=== PATIENT | male | born 1940 | race Caucasian/White ===

== ENCOUNTER 2017-04-11 15:17 | Inpatient (IN) | payer MEDICARE, OTHER ==
[~2017-04-11] VITALS: Ht 185.4 cm; Wt 91.2 kg
[~2017-04-11 15:17] MED LIST: ATENOLOL 25MG T25 M1 PO; AVODART0.5 MG PO; BENICAR40 MG PO; CIPROFLOXACIN500 M1 PO; FELODIPINE 5 MG5 M1 PO; FLOMAX0.4 MG PO; FLONASE 0.05%50 MCG NS; HYTRIN 2MG CAPSU2 M1 PO; LEVAQUIN 500 M500 M2 PO; ONE DAILY COMP1 EAC1 PO; ROBAFEN AC SYR120 ML PO; SYNTHROID50 MCG PO; ZPAK PO
[2017-04-11 15:25] VITALS: BP 109/86
[2017-04-11] MEDS ORDERED: LOPRESSOR50 PO (15:27)
[2017-04-11] MEDS ORDERED: VITAMIN D3400 UNIT PO (15:28)
[2017-04-11] MEDS ORDERED: VITAMIN D2000 UNIT PO (15:29)
[2017-04-11] MEDS ORDERED: VITAMIN B122500 MCG PO (15:29)
[2017-04-11 16:05] LABS: HEMATOCRIT 40.8 % (42.0-52.0); HEMOGLOBIN 13.8 gm/dL (14.0-18.0); MCHC 33.8 g/dL (28.0-37.0); MCV 94.7 fL (80.0-100.0); MPV 8.9 fl. (7.2-11.1); NUCLEATED RBCS 0 /100WBC; PLATELET COUNT* 142 thou/uL (150-400); RBC 4.31 mil/uL (4.50-6.00); RDW-CV 12.6 % (10.5-14.5); WBC 19.3 thou/uL (4.0-11.0)
[2017-04-11 16:15] LABS: CALCIUM 8.2 mg/dL (8.5-10.1); CREATININE 1.2 mg/dL (0.6-1.3); POTASSIUM 3.6 mmol/L (3.5-5.1)
[2017-04-11 16:26] LABS: ALBUMIN 3.5 g/dL (3.4-5.0); TOTAL BILIRUBIN 0.9 mg/dL (<0.1-1.0); TOTAL PROTEIN 6.6 g/dL (6.4-8.2)
[2017-04-11 16:29] LABS: ABSOLUTE LYMPHOCYTES 1.5 thou/uL (0.8-5.3); ABSOLUTE MONOCYTES 0.8 thou/uL (0.0-1.2)
[2017-04-11 16:31] LABS: PLATELET ESTIMATE ADEQUATE
[2017-04-11 16:39] LABS: URINE BILIRUBIN NEGATIVE (Negative); URINE BLOOD NEGATIVE (Negative); URINE CLARITY CLEAR; URINE COLOR YELLOW; URINE GLUCOSE-RANDOM NEGATIVE (Negative); URINE KETONES NEGATIVE (Negative); URINE LEUKOCYTES-REFLEX NEGATIVE (Negative); URINE NITRITE-REFLEX NEGATIVE (Negative); URINE PROTEIN NEGATIVE (Negative); URINE SPECIFIC GRAVITY 1.015 (1.005-1.030); URINE UROBILINOGEN 0.2 E.U./dl (0.2-1.0)
[2017-04-11 19:49] VITALS: BP 144/83
[2017-04-11 21:00] VITALS: BP 129/76
[2017-04-12 00:01] VITALS: BP 115/73
[2017-04-12 04:16] LABS: CALCIUM 8.8 mg/dL (8.5-10.1); CREATININE 1.3 mg/dL (0.6-1.3); MAGNESIUM 2.3 mg/dL (1.8-2.4); POTASSIUM 3.8 mmol/L (3.5-5.1)
[2017-04-12 04:27] LABS: ABSOLUTE BASOPHILS 0.1 thou/uL (0.0-0.2); ABSOLUTE LYMPHOCYTES 2.2 thou/uL (0.8-5.3); ABSOLUTE MONOCYTES 1.2 thou/uL (0.0-1.2); ABSOLUTE NEUTROPHILS 18.7 thou/uL (1.6-8.1); BASOPHILS 0.4 %; EOSINOPHILS 0.1 %; LYMPHOCYTES 10.1 %; MCH 31.5 pg (26.0-34.0); MCHC 33.4 g/dL (28.0-37.0); MCV 94.3 fL (80.0-100.0); MONOCYTES 5.2 %; NUCLEATED RBCS 0 /100WBC; PLATELET COUNT* 155 thou/uL (150-400); POLYS 84.2 %; RBC 4.45 mil/uL (4.50-6.00); RDW-CV 12.8 % (10.5-14.5); WBC 22.2 thou/uL (4.0-11.0)
--- NOTE | 2017-04-12 04:33 | NUR ---
PT. ADMITTED TO BED 112 @ 2000, ALERT AND ORIENTED, C/O ABDOMINAL PAIN. VITAL SIGNS STABLE. ROOM AIR. C/O CONSTIPATION, MAG CITRATE ORDERED, GIVEN, PT. VOMITTED, ZOFRAN GIVEN PER PRN ORDER. PT. UP STAND BY ASSIST. WILL CONTINUE TO MONITOR.
[2017-04-12 07:45] VITALS: BP 119/78
--- NOTE | 2017-04-12 08:44 | NUR ---
ASSUMED CARE OF PT AROUND 0730 THIS AM. REFER TO ASSESSMENT. PT REPORTED ABDOMINAL PAIN THIS AM. PRN FENTANYL ADMINISTERED AND PT REPORTS EFFECTIVE. NO BM REPORTED AT THIS TIME. PT REPORTS PASSING FLATUS. TOLERATING CLEAR LIQUID DIET THIS AM. NO OTHER CONCERNS AT THIS TIME. CLWR. WCTM.
--- NOTE | 2017-04-12 12:32 | NUR ---
MET WITH PT TO DISCUSS HOME SITUATION/DC PLANNING. PT LIVES WITH SPOUSE. HE IS NORMALLY INDEPENDENT AND FAIRLY ACTIVE. USES A CANE NEEDED. PT DRIVES. HE HASN'T HAD HH OR BEEN TO SNF. DOESN'T ANTICIPATE ANY NEEDS AT THIS TIME. AND DTR AT BEDSIDE AND SUPPORTIVE. WILL FOLLOW
[2017-04-12 16:00] VITALS: BP 124/69
--- NOTE | 2017-04-12 17:42 | NUR ---
PT PROGRESSING TOWARDS GOALS THIS SHIFT. PT HAS HAD A BM THIS SHIFT. PT HAS REPORTED LESS PAIN THROUGHOUT THIS SHIFT. VSS. NO C/O NAUSEA THIS SHIFT. PT HAS TOLERATED CLEAR AND FULL LIQUID DIET. NO OTHER CONCERNS AT THIS TIME. CLWR. WCTM.
[2017-04-12 20:00] VITALS: BP 134/78
--- NOTE | 2017-04-12 22:00 | NUR ---
ASSESSMENT AND VITALS COMPLETED CHARTED VSS. PATIENT ON ROOM AIR WITH SATS >92%. PATIENT HAS C/O PAIN IN ABDOMEN. ENCOURAGED PAIN TO ATTEMPT TO HAVE A BOWEL MOVEMENT OR REPOSITION FOR COMFORT. PATIENT REQUESTING IV FENTANYL. COMPLETE RELIEF OF PAIN RELIEVED WITH IV FENTANYL. SCHEDULED STOOL SOFTENERS ADMINISTERED. GOAL IS FOR PATIENT TO HAVE A BOWEL MOVEMENT AND RECEIVE PAIN RELIEF. CALL LIGHT WITHIN REACH
[2017-04-13 04:50] LABS: ABSOLUTE BASOPHILS 0.1 thou/uL (0.0-0.2); ABSOLUTE EOSINOPHILS 0.1 thou/uL (0.0-0.7); ABSOLUTE LYMPHOCYTES 1.2 thou/uL (0.8-5.3); ABSOLUTE MONOCYTES 0.9 thou/uL (0.0-1.2); ABSOLUTE NEUTROPHILS 10.5 thou/uL (1.6-8.1); BASOPHILS 0.5 %; EOSINOPHILS 0.5 %; HEMATOCRIT 37.1 % (42.0-52.0); HEMOGLOBIN 12.7 gm/dL (14.0-18.0); LYMPHOCYTES 9.2 %; MCHC 34.3 g/dL (28.0-37.0); MCV 93.3 fL (80.0-100.0); MONOCYTES 7.1 %; MPV 9.7 fl. (7.2-11.1); NUCLEATED RBCS 0 /100WBC; PLATELET COUNT* 129 thou/uL (150-400); POLYS 82.7 %; RBC 3.98 mil/uL (4.50-6.00); RDW-CV 12.5 % (10.5-14.5); WBC 12.7 thou/uL (4.0-11.0)
[2017-04-13 04:56] LABS: ALBUMIN 2.8 g/dL (3.4-5.0); CALCIUM 7.9 mg/dL (8.5-10.1); CREATININE 1.2 mg/dL (0.6-1.3); POTASSIUM 3.9 mmol/L (3.5-5.1); TOTAL PROTEIN 5.8 g/dL (6.4-8.2)
--- NOTE | 2017-04-13 05:14 | NUR ---
PATIENT PARTIALLY PROGRESSING TOWARDS GOALS: PATIENT IS PASSING FLATUS AND HAD A SMALL BOWEL MOVEMENT THIS SHIFT. BM WAS NOT OBSERVED DUE TO PATIENT FLUSHING TOILET. PATIENT RECEIVED IV PAIN MEDICATION ONE TIME WITH COMPLETE RELIEF OF PAIN AND HAS NOT HAS C/O PAIN SINCE. HOURLY ROUNDING OBSERVED. CALL LIGHT WITHIN REACH
[2017-04-13 07:55] VITALS: BP 137/75
--- NOTE | 2017-04-13 10:15 | NUR ---
ASSUMED CARE OF PT AROUND 0700 THIS AM. REFER TO ASSESSMENT. PT VOICES NO CONCERNS THIS AM. DENIES PAIN OR NAUSEA. REPORTS OCCASIONAL GAS RELIEVED BY PASSING FLATUS. IVF INFUSING WITHOUT DIFFICULTY. NO OTHER CONCERNS AT THIS TIME. CLWR. WCTM.
[2017-04-13 16:00] VITALS: BP 144/91
--- NOTE | 2017-04-13 16:35 | NUR ---
PT PROGRESSING TOWARDS GOALS. PT HAS NOT HAD ANY C/O PAIN/ NAUSEA/ VOMITTING THIS SHIFT. IVF INFUSING WITHOUT DIFFICULTY. DHALIWAL DRAINING WITHOUT DIFFICULTY. FAMILY AT BEDSIDE. NO OTHER CONCERNS AT THIS TIME. CLWR. WCTM.
[2017-04-13 20:00] VITALS: BP 132/73
--- NOTE | 2017-04-14 04:07 | NUR ---
PATIENT ORIENTED X4 ON HOURLY ROUNDS. AMBULATED IN HALLWAYS, TOLERATED WELL. DENIES NEED FOR PAIN MEDICATION. TOLERATING DIET. DHALIWAL CATHETER PATENT, CLEAR YELLOW RETURN. VITALS STABLE ON ROOM AIR. CONTINUE TO MONITOR.
[2017-04-14 04:23] LABS: ABSOLUTE BASOPHILS 0.1 thou/uL (0.0-0.2); ABSOLUTE EOSINOPHILS 0.2 thou/uL (0.0-0.7); ABSOLUTE LYMPHOCYTES 1.4 thou/uL (0.8-5.3); ABSOLUTE MONOCYTES 0.9 thou/uL (0.0-1.2); ABSOLUTE NEUTROPHILS 7.2 thou/uL (1.6-8.1); BASOPHILS 1.3 %; EOSINOPHILS 2.3 %; HEMATOCRIT 36.4 % (42.0-52.0); HEMOGLOBIN 12.4 gm/dL (14.0-18.0); LYMPHOCYTES 14.2 %; MCH 32.6 pg (26.0-34.0); MCHC 34.1 g/dL (28.0-37.0); MCV 95.6 fL (80.0-100.0); MONOCYTES 8.9 %; MPV 9.7 fl. (7.2-11.1); NUCLEATED RBCS 0 /100WBC; PLATELET COUNT* 137 thou/uL (150-400); POLYS 73.3 %; RBC 3.81 mil/uL (4.50-6.00); RDW-CV 12.9 % (10.5-14.5); WBC 9.8 thou/uL (4.0-11.0)
[2017-04-14 04:32] LABS: ALBUMIN 2.7 g/dL (3.4-5.0); CREATININE 1.2 mg/dL (0.6-1.3); TOTAL BILIRUBIN 0.7 mg/dL (<0.1-1.0); TOTAL PROTEIN 5.7 g/dL (6.4-8.2)
[2017-04-14 04:37] LABS: PREALBUMIN 14.2 mg/dL (18.0-35.7)
[2017-04-14 09:15] VITALS: BP 149/84
--- NOTE | 2017-04-14 09:32 | NUR ---
ORDERS RECEIVED. CHART REVIEWED. NSG NOTES INDICATE PT AMB IN HALLS LAST NIGHT. ON FIRST ATTEMPT TO SEE PT, HE WAS IN BATHROOM INDEP. SPOKE WITH PT WHO REPORTS NO DIFFICULTY WITH MOBILITY AND NO CONCERNS. PT STATES HE BROUGHT A CANE TO HOSPITAL FOR ADDITIONAL SECURITY WITH MOBILITY. NO ACUTE P.T. INTERVENTION INDICATED AT THIS TIME.
[2017-04-14] MEDS ORDERED: FLAGYL500 MG PO (13:54)
[2017-04-14] MEDS ORDERED: CIPRO500 MG PO (13:54)
[2017-04-14] MEDS ORDERED: MIRALAX17 GM PO (14:02)
[2017-04-14 14:03] VITALS: BP 149/84
[2017-04-14 14:24] VITALS: BP 149/84
[2017-04-14 14:56] VITALS: BP 149/84
[2017-04-14 15:06] VITALS: BP 149/84
--- NOTE | 2017-04-14 15:07 | NUR ---
PATIENT IS ALERT AND ORIENTED VERY PLEASANTM, VITAL SIGNS STABLE ON ROOM AIR. NO COMPLIANTS OF ANY KIND TODAY. DHALIWAL DRAINS WELL. CHECKED WITH DOCTOR AND DHALIWAL IS TO REMAIN IN PLACE AND DR APPT NEEDS TO BE NEXT WEEK. DISCHARGE INSTRUCTIONS, PRESCRIPTIONS GIVEN AND QUESTIONS ANSWERED FOR FAMILY. PATIENT LEFT VIA WHEELCHAIR WITH TO HOME.
--- NOTE | 2017-04-29 19:58 | CON ---
[address] [address] CONSULTATION Name: ANGI MONTANA Room: [address] IN M.R.#: [id number] Admission: 04/11/17 Attend Phys: Eric Spencer MD Discharge: 04/14/17 Date of : 36 Report #: [id number] THIS REPORT FOR: //name// CC: Eric Soto MD ADDENDUM REFERRING PHYSICIAN: Eric Spencer MD. Addendum to job #[id number] I have seen and examined: Agree with plan that has been outlined by our nurse practitioner, Mandy Ro. I also reviewed the patient's CT scan and agree that he has uncomplicated sigmoid diverticulitis. He is currently on antibiotics and a full liquid diet. Once he is feeling better, we can advance him on low-residue diet for the duration of treatment for his diverticulitis which would be over the next 2-3 weeks and switch him over to high fiber diet. We will need to make sure he is passing gas and having bowel movements before he leaves the hospital as it will definitely help with his lower pain. I suspect the patient will need to be in the hospital for another 4-5 days. We will continue to follow him. We then get him set up as an outpatient for a colonoscopy in 4-6 weeks. I have discussed the plans with the patient as well, and he is agreeable to the same. <ELECTRONICALLY SIGNED> By: Rock Mcfarlane DO 04/29/171957 1727 0012Rock Mcfarlane DO /nt
--- NOTE | 2017-04-29 19:58 | CON ---
[address] [address] CONSULTATION Name: ANGI MONTANA Room: [address]#: [id number] Admission: 04/11/17 Attend Phys: Eric Spencer MD Discharge: 04/14/17 Date of : 38 Report #: [id number] THIS REPORT FOR: //name// CC: Eric Soto DICTATED BY: Mandy Ro [facility] DATE OF SERVICE: 04/12/2017 Please note at the time of this dictation, the patient was seen and physically examined by myself. REASON FOR CONSULTATION: Diverticulitis. HISTORY OF PRESENT ILLNESS: This is a 76-year-old male who presented to the Emergency Room after having lower abdominal discomfort, which he states on Tuesday night he had some discomfort and unable to go to the bathroom and again on Tuesday night his pain became worse. He did have a very small bowel movement that was very hard in nature on Tuesday evening and his pain continued to get worse prompting him to come in to be seen yesterday in the Emergency Room. His last bowel movement was Tuesday evening, late, which was very hard and dry. He states normally he goes about once a day in the morning upon awakening and then sometimes he may have some diarrhea following that. He does not take anything regularly for his bowels either. He states he did have a colonoscopy a couple of years ago with [facility] and we will obtain those records for our review. He also was having some issues with having to strain to urinate as well as defecate at the time of admission. It was noted that he had an enlarged prostate and Urology was consulted at that time. ALLERGIES: MORPHINE. MEDICATIONS: From home include Hytrin, vitamin B12, vitamin D, Lopressor, Synthroid and Plendil. PAST MEDICAL HISTORY: Hypertension, hypothyroidism, benign prostatic hypertrophy and questionable history of some prostate cancer. PAST SURGICAL HISTORY: Appendectomy. FAMILY HISTORY: Noncontributory. SOCIAL HISTORY: Denies any alcohol, tobacco or illegal drug use. REVIEW OF SYSTEMS: Twelve-point review of systems [place] [address] CONSULTATION Name: ANGI MONTANA Room: [address]#: [id number] Admission: 04/11/17 Attend Phys: Eric Spencer MD Discharge: 04/14/17 Date of : 38 Report #: [id number] except what is mentioned in the HPI. PHYSICAL EXAMINATION: VITAL SIGNS: Temperature 36.7, pulse 83, respirations 15 and blood pressure 119/78. HEART: Regular rate and rhythm. LUNGS: Clear. ABDOMEN: Soft, positive bowel sounds in all four quadrants with tenderness noted in the lower quadrants especially on the right lower quadrant to touch. LABORATORY DATA: Hemoglobin is 11.4, hematocrit is 42, white count on admission was 19 and he is up to 22 and platelets 155. Sodium 136, potassium 3.8, chloride 103, CO2 of 23, BUN is 16, creatinine 1.3, GFR is 53 and glucose is 157. His CRP is 171. His LFTs are normal and lipase is normal. CT of the abdomen and pelvis showed prominent inflammatory changes with wall thickening of the sigmoid area extending along the sigmoid colon consistent with acute diverticulitis with pericolonic inflammation and fluid that did not show any abscess that was noted as well as an enlarged prostate as well. He also noted to have hepatic steatosis and some cystic changes noted in the kidneys. IMPRESSION: 1. Abdominal pain and diverticulitis. 2. Constipation. 3. Leukocytosis. 4. Enlarged prostate. PLAN: 1. The patient to have a better bowel regimen when he goes home, so that he is going soft and formed on a daily basis. 2. Continue his antibiotics, Cipro and Flagyl. 3. Obtain his medical records from [facility] for our review. 4. Further recommendations to be made once the above have been noted. Thank you for allowing us to participate in this patient's care. Please do not hesitate to call with any questions in regard to this consult. <ELECTRONICALLY SIGNED> By: Rock Mcfarlane DO 04/29/17 1958 1512 0558Rock Mcfarlane DO /nt
== END 2017-04-14 17:14 | disposition home or self-care (01) | DRG 872 ==
LOC: M.ERS 15:17 → M.ORTHSURG 17:09 → M.TBA-ER 17:09 → M.ORTHSURG 20:05
PROVIDERS: Physician Assistant; ADMIT Internal Medicine
DX: A41.9 Sepsis, unspecified organism (principal); K57.20 Diverticulitis of large intestine with perforation and abscess without bleeding; E44.1 Mild protein-calorie malnutrition; E86.0 Dehydration; I10 Essential (primary) hypertension; E03.9 Hypothyroidism, unspecified; N40.0 Benign prostatic hyperplasia without lower urinary tract symptoms; K59.00 Constipation, unspecified; R33.9 Retention of urine, unspecified; N40.1 Benign prostatic hyperplasia with lower urinary tract symptoms; Z90.49 Acquired absence of other specified parts of digestive tract; Z79.899 Other long term (current) drug therapy; Z88.6 Allergy status to analgesic agent

== ENCOUNTER 2017-05-01 01:37 | Emergency (ER) | payer MEDICARE, OTHER ==
[~2017-05-01] VITALS: Ht 185.4 cm; Wt 86.2 kg
[~2017-05-01 01:37] MED LIST changes: +CIPRO500 MG PO; +FLAGYL500 MG PO; +LOPRESSOR50 PO; +MIRALAX17 GM PO; +VITAMIN B122500 MCG PO; +VITAMIN D2000 UNIT PO; +VITAMIN D3400 UNIT PO
[2017-05-01 02:02] LABS: ABSOLUTE BASOPHILS 0.2 thou/uL (0.0-0.2); ABSOLUTE LYMPHOCYTES 1.8 thou/uL (0.8-5.3); ABSOLUTE MONOCYTES 1.8 thou/uL (0.0-1.2); ABSOLUTE NEUTROPHILS 12.2 thou/uL (1.6-8.1); EOSINOPHILS 0.2 %; HEMATOCRIT 40.5 % (42.0-52.0); HEMOGLOBIN 13.7 gm/dL (14.0-18.0); LYMPHOCYTES 11.4 %; MCH 31.8 pg (26.0-34.0); MCHC 33.9 g/dL (28.0-37.0); MCV 93.6 fL (80.0-100.0); MONOCYTES 11.1 %; MPV 8.6 fl. (7.2-11.1); NUCLEATED RBCS 0 /100WBC; PLATELET COUNT* 212 thou/uL (150-400); POLYS 76.3 %; RBC 4.32 mil/uL (4.50-6.00); RDW-CV 12.8 % (10.5-14.5)
[2017-05-01 02:05] LABS: URINE BILIRUBIN NEGATIVE (Negative); URINE BLOOD 1+ (Negative); URINE CLARITY SL CLOUDY; URINE COLOR YELLOW; URINE GLUCOSE-RANDOM NEGATIVE (Negative); URINE KETONES NEGATIVE (Negative); URINE PROTEIN NEGATIVE (Negative); URINE UROBILINOGEN 0.2 E.U./dl (0.2-1.0)
[2017-05-01 02:08] LABS: CALCIUM 8.6 mg/dL (8.5-10.1); CREATININE 1.1 mg/dL (0.6-1.3); POTASSIUM 3.8 mmol/L (3.5-5.1)
[2017-05-01 02:10] LABS: URINE LEUKOCYTES-REFLEX 2+ (Negative); URINE NITRITE-REFLEX POSITIVE (Negative)
[2017-05-01 02:12] LABS: ALBUMIN 3.6 g/dL (3.4-5.0); TOTAL BILIRUBIN 1.1 mg/dL (<0.1-1.0); TOTAL PROTEIN 7.3 g/dL (6.4-8.2)
[2017-05-01 02:35] LABS: CASTS None Seen /LPF (None Seen); SQUAMOUS 0-3 Few /LPF (0-3)
[2017-05-01 02:36] LABS: BACTERIA-REFLEX >30 Many /HPF (None Seen); CRYSTALS None Seen /LPF (None Seen); URINE RBC 0-2 Rare /HPF (0-2); WBC CLUMPS Few (None Seen)
[2017-05-01 04:28] VITALS: BP 117/76
== END 2017-05-01 04:32 | disposition home or self-care (01) ==
LOC: M.ERS 01:37
PROVIDERS: Personal Emergency Response Attendant
DX: N39.0 Urinary tract infection, site not specified (principal); I10 Essential (primary) hypertension

== ENCOUNTER → 2017-09-22 | Outpatient (CLI) | payer MEDICARE, OTHER | LOC: M.RAD 14:04 | DX: J40 Bronchitis, not specified as acute or chronic (principal) ==

== ENCOUNTER → 2018-05-01 | Outpatient (CLI) | payer MEDICARE, BC | LOC: M.RAD 11:10 | DX: R50.9 Fever, unspecified (principal) ==

== ENCOUNTER 2018-12-12 19:34 | Inpatient (IN) | payer MEDICARE, OTHER ==
[~2018-12-12] VITALS: Ht 185.4 cm; Wt 93.3 kg
[~2018-12-12 19:34] MED LIST changes: -VITAMIN B122500 MCG PO
[2018-12-12 19:58] VITALS: BP 144/69
[2018-12-12] MEDS ORDERED: PROSCAR 5MG TABL5 MG PO (20:06)
[2018-12-12] MEDS ORDERED: PROMETH-CODEIN 65 ML PO (20:07)
[2018-12-12 20:24] LABS: ABSOLUTE LYMPHOCYTES 0.5 thou/uL (0.8-5.3); BASOPHILS 0.4 %; EOSINOPHILS 0.4 %; HEMATOCRIT 41.9 % (42.0-52.0); HEMOGLOBIN 14.6 gm/dL (14.0-18.0); LYMPHOCYTES 5.2 %; MCH 32.6 pg (26.0-34.0); MCHC 34.9 g/dL (28.0-37.0); MCV 93.3 fL (80.0-100.0); MPV 8.6 fl. (7.2-11.1); NUCLEATED RBCS 0 /100WBC; PLATELET COUNT* 145 thou/uL (150-400); RBC 4.49 mil/uL (4.50-6.00); RDW-CV 12.9 % (10.5-14.5); WBC 9.5 thou/uL (4.0-11.0)
[2018-12-12 20:31] LABS: ANION GAP 11 mmol/L (7-16); BUN 17 mg/dL (7-18); CALCIUM 8.6 mg/dL (8.5-10.1); CHLORIDE 100 mmol/L (98-107); CO2 26 mmol/L (21-32); CREATININE 1.5 mg/dL (0.6-1.3); GLUCOSE 125 mg/dL (70-99); POTASSIUM 3.9 mmol/L (3.5-5.1); SODIUM 137 mmol/L (136-145)
[2018-12-12 20:41] LABS: ALBUMIN 3.9 g/dL (3.4-5.0); ALKALINE PHOSPHATASE 98 U/L (46-116); LIPASE 151 U/L (73-393); NT-PRO BRAIN NAT PEPTIDE 378 pg/mL (<300); SGOT 34 U/L (15-37); SGPT 32 U/L (30-65); TOTAL PROTEIN 7.2 g/dL (6.4-8.2); TROPONIN-I LEVEL <0.06 ng/mL (<0.06)
[2018-12-12 20:48] LABS: PROTIME 10.7 Seconds (9.20-11.50)
[2018-12-12 21:42] LABS: INFLUENZA A ANTIGEN Negative (Negative); INFLUENZA B ANTIGEN Negative (Negative)
[2018-12-12 23:30] VITALS: BP 143/80
[2018-12-12 23:32] VITALS: BP 144/68
[2018-12-12] MEDS ORDERED: VITAMIN B122500 MCG PO (23:47)
[2018-12-13 03:00] VITALS: BP 109/64
[2018-12-13 06:05] LABS: URINE BILIRUBIN NEGATIVE (Negative); URINE BLOOD TRACE (Negative); URINE CLARITY CLEAR; URINE COLOR YELLOW; URINE GLUCOSE-RANDOM 1+ (Negative); URINE KETONES 2+ (Negative); URINE LEUKOCYTES-REFLEX NEGATIVE (Negative); URINE NITRITE-REFLEX NEGATIVE (Negative); URINE PROTEIN NEGATIVE (Negative); URINE UROBILINOGEN 0.2 E.U./dl (0.2-1.0)
[2018-12-13 08:00] VITALS: BP 125/64
--- NOTE | 2018-12-13 10:16 | EKG ---
[place] [address] ELECTROCARDIOGRAM REPORT Name: ANGI MONTANA Room: [address] ADM IN .R.#: [id number] Admission: 12/12/18 Attend Phys: Daniel Alvarado, Discharge: Date of : 38 Report #: [id number] THIS REPORT FOR: //name// [facility] Test Date: 2018-12-12 Test Time: 20:02:20 Pat Name: ANGI NAN Department: Room: [facility] Gender: M Cable Splicing Technician: ZULMA : 1940 Requested By: Monica Trevino Order Number: [id number] MD: Umer Rodriguez Measurements Intervals [place] Rate: 98 P: 60 KS: 148 QRS: -76 QRSD: 131 T: 53 QT: 362 QTc: 463 Interpretive Statements Sinus tachycardia Multiple premature complexes, vent & supraven Probable left atrial enlargement RBBB and LAFB Baseline wander in lead(s) V6 Compared to ECG 07/17/2009 17:53:23 Sinus rhythm no longer present Electronically Signed On 12-13-2018 10:16:16 CDT by Umer Rodriguez [email or web address] <ELECTRONICALLY SIGNED> By: Umer Rodriguez MD, FACC 12/13/18 1016 01 01 Umer Rodriguez MD, FACC /EPI
[2018-12-13 11:00] VITALS: BP 124/64
[2018-12-13 15:00] VITALS: BP 118/69
[2018-12-13 21:05] VITALS: BP 117/52
[2018-12-14 00:35] VITALS: BP 114/65
[2018-12-14 04:30] VITALS: BP 122/84
[2018-12-14 04:46] LABS: MCH 32.2 pg (26.0-34.0); MCHC 34.6 g/dL (28.0-37.0); MPV 9.6 fl. (7.2-11.1); RBC 3.87 mil/uL (4.50-6.00); RDW-CV 13.2 % (10.5-14.5); WBC 15.4 thou/uL (4.0-11.0)
[2018-12-14 04:49] LABS: HEMOGLOBIN 12.5 gm/dL (14.0-18.0)
[2018-12-14 05:04] LABS: ALBUMIN 2.9 g/dL (3.4-5.0); CALCIUM 7.7 mg/dL (8.5-10.1); CREATININE 1.3 mg/dL (0.6-1.3); MAGNESIUM 1.9 mg/dL (1.8-2.4); POTASSIUM 3.6 mmol/L (3.5-5.1); TOTAL BILIRUBIN 0.8 mg/dL (<0.1-1.0); TOTAL PROTEIN 5.7 g/dL (6.4-8.2)
[2018-12-14 08:00] VITALS: BP 120/61
[2018-12-14 12:33] VITALS: BP 118/66
[2018-12-14 16:00] VITALS: BP 127/71
[2018-12-14 19:35] VITALS: BP 130/78
[2018-12-14 21:05] LABS: IgA 165 mg/dL (61-437); IgG 551 mg/dL (700-1600); IgM 168 mg/dL (15-143)
[2018-12-15] VITALS (7 sets, daily range): BP systolic 112–166; BP diastolic 75–99
--- NOTE | 2018-12-15 11:59 | CON ---
[address] [address] CONSULTATION Name: ANGI MONTANA Room: [address] IN .R.#: [id number] Admission: 12/12/18 Attend Phys: Daniel Alvarado, Discharge: Date of : 38 Report #: [id number] THIS REPORT FOR: //name// CC: Anna Alvarado DATE OF SERVICE: 12/14/2018 REASON FOR EVALUATION: Cough, shortness of breath, post-fall. HISTORY OF PRESENT ILLNESS: The patient is an 78-year-old pleasant gentleman who was admitted with cough, sore throat for 3 days. The patient had a fall, was not able to pick him up, and was admitted for further care. He states he has been having cough productive of yellow sputum over the last 3 days. Currently, with antibiotics treatment, his cough is more clear. He had history of chills, poor appetite, also has history of dysphagia that he relates to sore throat. Denies any hemoptysis. Denies any history of wheezing, asthma or COPD in the past, quit smoking 40 years ago. He had a V/Q scan, which was normal and excludes PE and he had a CT scan, which shows right upper lobe ground glass opacity as well as bronchiectasis, more prominent in the right lower lobe. PAST MEDICAL HISTORY: Hypertensin, sinusitis and diverticulosis. ALLERGIES: MORPHINE. FAMILY HISTORY: No family history of COPD or cardiac disease. SOCIAL HISTORY: Quit smoking more than 40 years ago. REVIEW OF SYSTEMS: Twelve-point review of systems, fever and cough. Denies lower extremity swelling or pain. Denies nausea or vomiting. Has history of choking. Otherwise, 14 systems reviewed and as above. HOME MEDICATIONS: Reviewed. PHYSICAL EXAMINATION: GENERAL: The patient is pleasant, not in distress. VITAL SIGNS: Stable. He is afebrile, maximum temperature on admission 38.2, pulse is 67, respiratory rate 17, blood pressure 118/66, O2 saturation is currently off oxygen, was on 1 liter. HEAD AND NECK: Neck supple. Oral mucosae clear. CHEST: Clear to auscultation. CARDIOVASCULAR: Regular rhythm. ABDOMEN: Soft, [place] [id number] CONSULTATION Name: ANGI MONTANA Room: [address]#: [id number] Admission: 12/12/18 Attend Phys: Daniel Alvarado, Discharge: Date of : 38 Report #: [id number] EXTREMITIES: No edema. NEUROLOGIC: No focal deficit. Alert and oriented. PSYCHIATRIC: Alert, oriented, normal affect. SKIN: No changes. EYES: Nonicteric. Mucous membranes are clear. LABORATORY AND OTHER DATABASE: V/Q scan done on 12/13/[address] scan, which I have reviewed as above, right upper lobe ground glass opacity, bronchiectasis is more prominent in the right side and right middle lobe and it is mild. ASSESSMENT AND PLAN: Cough and fever with purulent sputum, suspect pneumonia. Has right upper lobe opacity. Agree with treatment with antibiotics, currently on Zosyn and azithromycin with improvement. Differential diagnoses include aspiration with aspiration pneumonia. At this time, we will do video swallow evaluation. Aspiration precaution recommended. Continue current antibiotic, takes azithromycin, currently on Zosyn too, may deescalate antibiotics in the morning. Bronchiectasis, differential diagnosis includes aspiration. We will do a video swallow. Other differential diagnosis includes hypogammaglobulinemia, decreased. We will check immunoglobulin level. Also with history of cough and prolonged bronchitis in the past, we will check IgE level. In the past, he had history of prolonged bronchitis, may need antibiotic treatment in case of severe bronchitis. Multiple falls, we will defer to primary, doubt syncope. The patient states he had severe cough, but he did not black out. Doubt cough-related syncope. <ELECTRONICALLY SIGNED> By: Nael Plata MD 12/15/18 1159 1410 2118Asem Aditya Plata MD /nt
[2018-12-16 04:00] VITALS: BP 154/85
[2018-12-16 08:00] VITALS: BP 139/73
[2018-12-16 13:09] VITALS: BP 152/82
[2018-12-16 20:00] VITALS: BP 157/81
[2018-12-17] VITALS: BP 141/86
[2018-12-17 04:00] VITALS: BP 151/83
[2018-12-17 08:00] VITALS: BP 128/78
[2018-12-17 14:10] VITALS: BP 146/84
[2018-12-17 16:00] VITALS: BP 132/87
[2018-12-17 20:00] VITALS: BP 166/99
[2018-12-18] VITALS (7 sets, daily range): BP systolic 127–162; BP diastolic 72–93
[2018-12-18 05:30] LABS: HEMATOCRIT 36.2 % (42.0-52.0); HEMOGLOBIN 12.3 gm/dL (14.0-18.0); MCH 31.9 pg (26.0-34.0); MCHC 33.9 g/dL (28.0-37.0); NUCLEATED RBCS 0 /100WBC; PLATELET COUNT* 181 thou/uL (150-400); RBC 3.85 mil/uL (4.50-6.00); RDW-CV 13.1 % (10.5-14.5); WBC 10.4 thou/uL (4.0-11.0)
[2018-12-18 05:45] LABS: ALBUMIN 2.9 g/dL (3.4-5.0); CALCIUM 7.7 mg/dL (8.5-10.1); CREATININE 1.3 mg/dL (0.6-1.3); MAGNESIUM 2.1 mg/dL (1.8-2.4); POTASSIUM 3.4 mmol/L (3.5-5.1); TOTAL BILIRUBIN 0.6 mg/dL (<0.1-1.0); TOTAL PROTEIN 5.9 g/dL (6.4-8.2)
[2018-12-18 06:07] LABS: ABSOLUTE LYMPHOCYTES 1.4 thou/uL (0.8-5.3); ABSOLUTE MONOCYTES 0.7 thou/uL (0.0-1.2); ABSOLUTE NEUTROPHILS 8.3 thou/uL (1.6-8.1); ANISOCYTOSIS 1+; MYELOCYTES 1 %; PLATELET ESTIMATE ADEQUATE; POIKILOCYTOSIS 1+
[2018-12-18 10:10] LABS: IgE 557 IU/mL (6-495)
[2018-12-19 04:00] VITALS: BP 148/89
[2018-12-19 05:10] LABS: ABSOLUTE LYMPHOCYTES 0.8 thou/uL (0.8-5.3); ABSOLUTE MONOCYTES 0.9 thou/uL (0.0-1.2); ABSOLUTE NEUTROPHILS 5.4 thou/uL (1.6-8.1); BASOPHILS 0.4 %; EOSINOPHILS 0.1 %; HEMATOCRIT 34.5 % (42.0-52.0); HEMOGLOBIN 11.8 gm/dL (14.0-18.0); LYMPHOCYTES 10.7 %; MCH 31.9 pg (26.0-34.0); MCHC 34.2 g/dL (28.0-37.0); MCV 93.1 fL (80.0-100.0); MONOCYTES 12.4 %; MPV 8.7 fl. (7.2-11.1); NUCLEATED RBCS 0 /100WBC; PLATELET COUNT* 178 thou/uL (150-400); POLYS 76.4 %; RBC 3.71 mil/uL (4.50-6.00); RDW-CV 13.2 % (10.5-14.5); WBC 7.1 thou/uL (4.0-11.0)
[2018-12-19 05:24] LABS: CALCIUM 7.8 mg/dL (8.5-10.1); POTASSIUM 3.5 mmol/L (3.5-5.1)
[2018-12-19 08:00] VITALS: BP 146/81
[2018-12-19 12:16] VITALS: BP 144/82
--- NOTE | 2018-12-19 15:03 | EKG ---
[place] [address] ELECTROCARDIOGRAM REPORT Name: ANGI MONTANA Room: [address] ADM IN M.R.#: [id number] Admission: 12/12/18 Attend Phys: Daniel Alvarado, Discharge: Date of : 38 Report #: [id number] THIS REPORT FOR: //name// [facility] Test Date: 2018-12-18 Test Time: 14:08:00 Pat Name: ANGI YORKEMILE Department: Room: [address] Gender: M Advertising Agency Manager: ANGEL : 1940 Requested By: Eric Spencer Order Number: [id number] Morales MD: Parrish Johnson Measurements Intervals [place] Rate: 62 P: 39 DE: 135 QRS: -75 QRSD: 140 T: -24 QT: 472 QTc: 480 Interpretive Statements Sinus rhythm RBBB and LAFB Compared to ECG 12/12/2018 20:02:20 Sinus tachycardia no longer present Electronically Signed On 12-19-2018 15:03:39 CDT by Parrish Johnson [email or web address] <ELECTRONICALLY SIGNED> By: Parrish Johnson MD, [facility] 12/19/18 1503 1408 1408 Parrish Johnson MD, [facility] /EPI
[2018-12-19 17:06] VITALS: BP 125/71
[2018-12-19 20:15] VITALS: BP 168/91
[2018-12-20] VITALS: BP 164/99
[2018-12-20 04:00] VITALS: BP 160/92
[2018-12-20 04:21] LABS: ABSOLUTE EOSINOPHILS 0.1 thou/uL (0.0-0.7); ABSOLUTE MONOCYTES 0.9 thou/uL (0.0-1.2); BASOPHILS 0.3 %; EOSINOPHILS 0.9 %; HEMOGLOBIN 12.3 gm/dL (14.0-18.0); NUCLEATED RBCS 0 /100WBC
[2018-12-20 04:24] LABS: ABSOLUTE LYMPHOCYTES 0.7 thou/uL (0.8-5.3); ABSOLUTE NEUTROPHILS 5.3 thou/uL (1.6-8.1); HEMATOCRIT 35.9 % (42.0-52.0); LYMPHOCYTES 10.1 %; MCH 32.1 pg (26.0-34.0); MCHC 34.2 g/dL (28.0-37.0); MCV 93.7 fL (80.0-100.0); MONOCYTES 12.9 %; MPV 8.6 fl. (7.2-11.1); PLATELET COUNT* 206 thou/uL (150-400); POLYS 75.8 %; RBC 3.83 mil/uL (4.50-6.00); RDW-CV 13.3 % (10.5-14.5)
[2018-12-20 04:52] LABS: ALBUMIN 2.7 g/dL (3.4-5.0); CREATININE 1.7 mg/dL (0.6-1.3); MAGNESIUM 2.1 mg/dL (1.8-2.4); PHOSPHORUS* 2.7 mg/dL (2.5-4.9); POTASSIUM 3.5 mmol/L (3.5-5.1); TOTAL BILIRUBIN 0.6 mg/dL (<0.1-1.0); TOTAL PROTEIN 5.5 g/dL (6.4-8.2)
[2018-12-20 08:00] VITALS: BP 159/84
[2018-12-20 12:00] VITALS: BP 150/87
[2018-12-20 16:00] VITALS: BP 148/85
[2018-12-20 19:30] VITALS: BP 148/83
[2018-12-21] VITALS: BP 136/73
[2018-12-21 04:00] VITALS: BP 145/79
[2018-12-21 08:00] VITALS: BP 152/82
[2018-12-21 09:03] LABS: CREATININE 1.1 mg/dL (0.6-1.3)
[2018-12-21 12:00] VITALS: BP 142/89
[2018-12-21 16:00] VITALS: BP 146/78
[2018-12-21 19:30] VITALS: BP 148/76
[2018-12-22] VITALS (7 sets, daily range): BP systolic 123–152; BP diastolic 66–92
[2018-12-22] MEDS ORDERED: FLOMAX0.4 MG PO (15:09)
[2018-12-22] MEDS ORDERED: ALBUTEROL2.5 MG/31 INH (15:09)
[2018-12-22] MEDS ORDERED: LEVAQUIN 750 M750 MG PO ×2 (15:09→15:41)
[2018-12-22] MEDS ORDERED: MUCINEX600 MG PO (15:09)
[2018-12-22] MEDS ORDERED: VITAMIN B122500 MCG PO (15:26)
[2018-12-22] MEDS ORDERED: SPIRIVA RESPIMAT4 G1 INH (15:41)
--- NOTE | 2018-12-25 17:03 | CON ---
[address] [address] CONSULTATION Name: ANGI MONTANA Room: [address] IN M.R.#: [id number] Admission: 12/12/18 Attend Phys: Daniel Alvarado, Discharge: 12/22/18 Date of : 38 Report #: [id number] THIS REPORT FOR: //name// CC: Anna Blanchard KNOCKER OUT Daniel Alvarado DATE OF SERVICE: 12/17/2018 REFERRING PHYSICIAN: Daniel Alvarado MD REASON FOR CONSULTATION: Abdominal tenderness. IMPRESSION: 1. Worsening abdominal distention and colonic distention compatible with ileus -- suspect pseudoobstruction. 2. Nausea, vomiting secondary to #1 without evidence for gastric or small bowel distention. 3. Pneumonia contributing to #1. 4. Hypoxemia, resolving. 5. Previous history of diverticulitis with followup colonoscopy performed in June 2017 revealing only diverticular disease. RECOMMENDATIONS: 1. Allow the patient to have ice chips or clear liquid diet only at this time. 2. Agree with scopolamine patch, the anticholinergic effects may cause some issues with his colon. 3. We will give the patient Dulcolax suppository followed by soapsuds enemas tonight and repeat tomorrow morning. 4. We will repeat abdominal series again tomorrow. 5. We will hold off on endoscopic evaluation at this time. There is also no evidence to suggest he would benefit from a colonic decompression unless his colon becomes more distended or we did not get any improvement with medical measures. 6. I discussed impressive plans with the patient as well as his family and everyone is in agreement with the same. HISTORY OF PRESENT ILLNESS: The patient is an 78-year-old white male who was admitted to hospital on 12/13/2018 with complaints of shortness of breath and respiratory failure. He is being treated for pneumonia and during his hospital stay, he has had some issues with increasing abdominal distention, nausea, vomiting, and inability to go to the bathroom. He states that prior to being in the hospital, he has not had any problems referable to his upper or lower GI tract. He was doing well from that standpoint. He denies any complaints of any dysphagia, odynophagia, but does have problem with some regurgitation or reflux. He is just not doing well. He originally thought that he had just a bad cold, [place] [address] CONSULTATION Name: ANGI MONTANA Room: [address] IN [facility]#: [id number] Admission: 12/12/18 Attend Phys: Daniel Alvarado, Discharge: 12/22/18 Date of : 38 Report #: [id number] but it just gotten worse. He is admitted to the hospital for further evaluation and treatment. ALLERGIES: MORPHINE. MEDICATIONS: At home include Proscar. He is on some cough medications. Terazosin, levothyroxine, metoprolol, vitamin B12, Plendil, and vitamin D3. PAST MEDICAL HISTORY: Remarkable for hypertension, BPH, hypothyroidism, B12 deficiency. He has history of sinusitis. He has had previous remote appendectomy. He has had bouts of diverticulitis in the past. SOCIAL HISTORY: The patient does not smoke or drink. FAMILY HISTORY: Negative. PHYSICAL EXAMINATION: GENERAL: Pleasant 78-year-old gentleman who is awake and alert. He appears to be fairly miserable with abdominal distention. CARDIOPULMONARY: Revealed a regular rate and rhythm. LUNGS: Coarse with some rhonchi in the bases. ABDOMEN: Distended. It is tympanitic. It is taut. He does have normal bowel sounds. DIAGNOSTIC DATA: His CT scan from 12/17/2018 revealed evidence for some lower lobe atelectasis, pneumonitis. He has had some air fluid levels noted within the colon with some distal colonic diverticulosis without evidence for diverticulitis. No other abnormalities were noted. LABORATORY DATA: From 12/14/2018 revealed a white count of 15.4, hemoglobin of 12.5, platelet count 130,000. MCV is 93 and RDW is 13.2. His sodium 137, potassium 3.6, chloride 105, bicarbonate 21, BUN 22, creatinine 1.3. Total bilirubin 0.8, alkaline phosphatase 66, AST 57, ALT 29, albumin is 2.9. DISCUSSION: At the present time, the patient has had some definite issues with what appears to be a colonic ileus. We will proceed with typical measures at this point in time and follow the patient expectantly. May need to add some prokinetic agents to help with the same. I have discussed the plans with the patient as well as his and they are agreeable to same. <ELECTRONICALLY SIGNED> By: Rock Mcfarlane DO 12/25/18 1703 1029 1451Rock Mcfarlane DO /nt
== END 2018-12-22 17:34 | disposition home health service (06) | DRG 177 ==
LOC: M.ERS 19:34 → M.2W 21:39 → M.TBA-ER 21:39 → M.ERS 21:39 → M.TBA-ER 21:48 → M.2W 23:15
PROVIDERS: Emergency Medicine; Family Medicine; Internal Medicine; Internal Medicine Gastroenterology; Internal Medicine Pulmonary Disease; ADMIT Family Medicine
DX: J15.6 Pneumonia due to other Gram-negative bacteria (principal); J96.01 Acute respiratory failure with hypoxia; K56.7 Ileus, unspecified; J98.11 Atelectasis; N13.30 Unspecified hydronephrosis; N17.9 Acute kidney failure, unspecified; J44.0 Chronic obstructive pulmonary disease with (acute) lower respiratory infection; I10 Essential (primary) hypertension; K57.90 Diverticulosis of intestine, part unspecified, without perforation or abscess without bleeding; J20.9 Acute bronchitis, unspecified; K59.00 Constipation, unspecified; N40.1 Benign prostatic hyperplasia with lower urinary tract symptoms; R33.8 Other retention of urine; Z88.6 Allergy status to analgesic agent; Z87.891 Personal history of nicotine dependence; Z82.49 Family history of ischemic heart disease and other diseases of the circulatory system; Z79.899 Other long term (current) drug therapy

== ENCOUNTER → 2019-01-31 | Outpatient (CLI) | payer MEDICARE, OTHER ==
[~2019-01-31] MED LIST changes: +ALBUTEROL2.5 MG/31 INH; +LEVAQUIN 750 M750 MG PO; +MUCINEX600 MG PO; +PROMETH-CODEIN 65 ML PO; +PROSCAR 5MG TABL5 MG PO; +SPIRIVA RESPIMAT4 G1 INH; +VITAMIN B122500 MCG PO
== END ==
LOC: M.RAD 14:13
DX: J18.9 Pneumonia, unspecified organism (principal); J98.4 Other disorders of lung